=== PATIENT | female | born 1995 | race Two or more races ===

== ENCOUNTER 2022-03-08 08:58 | Emergency (ER) | payer OTHER ==
[~2022-03-08] VITALS: Ht 152.4 cm; Wt 46.3 kg
== END 2022-03-08 13:55 | disposition home or self-care (01) ==
LOC: ER 08:58
DX: S06.9X2A Unspecified intracranial injury with loss of consciousness of 31 minutes to 59 minutes, initial encounter (principal); S14.109A Unspecified injury at unspecified level of cervical spinal cord, initial encounter; R55 Syncope and collapse; W19.XXXA Unspecified fall, initial encounter; Y93.9 Activity, unspecified; Y92.511 Restaurant or cafe as the place of occurrence of the external cause; Y99.9 Unspecified external cause status
CPT/HCPCS: 70544; 72141

== ENCOUNTER 2022-03-11 17:53 | Emergency (ER) | payer OTHER ==
[~2022-03-11] VITALS: Ht 152.4 cm; Wt 45.4 kg
[2022-03-11] MEDS ORDERED: ONDANSETRON ODT8 MG PO (19:44)
== END 2022-03-11 20:22 | disposition home or self-care (01) ==
LOC: ER 17:53
DX: O02.0 Blighted ovum and nonhydatidiform mole (principal)

== ENCOUNTER 2022-06-08 01:49 | Outpatient (CLI) | payer OTHER ==
[~2022-06-08 01:49] MED LIST: ONDANSETRON ODT8 MG PO
[2022-06-08] MEDS ORDERED: PRENATABS RX T1 EACH PO (02:17)
[2022-06-08] MEDS ORDERED: FOLIC ACID0.8 M1 PO (02:18)
== END 2022-06-08 09:53 | disposition home or self-care (01) ==
LOC: OBS/DEL 01:49
PROVIDERS: ATTEND Obstetrics & Gynecology
DX: O26.892 Other specified pregnancy related conditions, second trimester (principal); Z3A.20 20 weeks gestation of pregnancy; R10.2 Pelvic and perineal pain

== ENCOUNTER 2022-06-08 10:18 | Outpatient (CLI) | payer OTHER ==
[~2022-06-08 10:18] MED LIST changes: +FOLIC ACID0.8 M1 PO; +PRENATABS RX T1 EACH PO
== END 2022-06-08 12:57 | disposition home or self-care (01) ==
LOC: PRENATAL 10:18
PROVIDERS: ATTEND Obstetrics & Gynecology Maternal & Fetal Medicine
DX: O35.9XX0 Maternal care for (suspected) fetal abnormality and damage, unspecified, not applicable or unspecified (principal); O35.3XX0 Maternal care for (suspected) damage to fetus from viral disease in mother, not applicable or unspecified; Z3A.20 20 weeks gestation of pregnancy

== ENCOUNTER 2022-08-06 14:28 | Outpatient (CLI) | payer OTHER | END 2022-08-07 12:43 | disposition home or self-care (01) | LOC: OBS/DEL 14:28 | PROVIDERS: ATTEND Obstetrics & Gynecology | DX: O23.33 Infections of other parts of urinary tract in pregnancy, third trimester (principal); O99.013 Anemia complicating pregnancy, third trimester; N39.0 Urinary tract infection, site not specified; Z3A.28 28 weeks gestation of pregnancy; Z20.822 Contact with and (suspected) exposure to COVID-19; Z91.040 Latex allergy status ==

== ENCOUNTER 2022-10-14 13:15 | Inpatient (IN) | payer OTHER ==
[~2022-10-14] VITALS: Ht 152.4 cm; Wt 61.7 kg
== END 2022-10-29 15:49 | disposition home or self-care (01) | DRG 807 ==
LOC: OB/GYN 10-24 13:15 → LDR 10-27 06:14 → OB/GYN 10-27 06:14 → O/R 10-27 14:35 → OB/GYN 10-27 14:37
PROVIDERS: ADMIT Obstetrics & Gynecology; ATTEND Obstetrics & Gynecology
PROC: 10E0XZZ Delivery of Products of Conception, External Approach (ICD-10-PCS; principal; 2022-10-27)
PROC: 4A1HXCZ Monitoring of Products of Conception, Cardiac Rate, External Approach (ICD-10-PCS; 2022-10-27)
DX: O80 Encounter for full-term uncomplicated delivery (principal); Z37.0 Single live birth; Z3A.40 40 weeks gestation of pregnancy; Z20.822 Contact with and (suspected) exposure to COVID-19

== ENCOUNTER 2024-03-10 12:06 | Emergency (ER) | payer OTHER ==
[~2024-03-10] VITALS: Ht 152.4 cm; Wt 52.6 kg
[2024-03-10 13:31] LABS: HEMATOCRIT 35.4 % (36.0-45.00); HEMOGLOBIN 12.1 g/dL (12.0-15.00); MEAN CORPUSCULAR HEMOGLOBIN 30.7 pg (27.00-32.0); MEAN CORPUSCULAR HGB CONC 34.1 g/dl (32.0-36.0); PLATELET COUNT 280 K/uL (150-450); RED BLOOD COUNT 3.93 M/uL (4.00-6.00); RED CELL DISTRIBUTION WIDTH 12.5 % (11.5-14.5)
[2024-03-10 13:40] LABS: URINE APPEARANCE Clear; URINE BACTERIA 1395.9 uL (0.0-1933); URINE BILIRRUBIN Negative (NEGATIVE); URINE BLOOD Negative; URINE COLOR Dark Yellow; URINE EPITHELIAL CELLS 39.2 uL (0.0-38.8); URINE GLUCOSE Negative (NEGATIVE); URINE KETONE Trace (NEGATIVE); URINE LEUKOCYTE Small; URINE NITRATE Negative; URINE PROTEIN Negative (NEGATIVE)
[2024-03-10 13:48] LABS: URINE CAST 0.15 uL (0.0-1.40)
[2024-03-10 13:54] LABS: CALCIUM 8.6 mg/dL (8.5-10.1); CREATININE SERUM 0.6 mg/dL (0.55-1.02); GFR 120.84; POTASSIUM 4.1 mEq/L (3.5-5.1)
== END 2024-03-10 14:28 | disposition home or self-care (01) ==
LOC: ER 12:08
PROVIDERS: General Practice
DX: O23.40 Unspecified infection of urinary tract in pregnancy, unspecified trimester (principal); N39.0 Urinary tract infection, site not specified; Z91.040 Latex allergy status

== ENCOUNTER 2024-07-28 09:47 | Emergency (ER) | payer OTHER ==
[~2024-07-28] VITALS: Ht 157.5 cm; Wt 54.4 kg
[2024-07-28] MEDS ORDERED: ACETAMINOPHEN 500 MG GEL..CAP PO ONE ×2 (10:30→10:32)
[2024-07-28 11:12] LABS: URINE BACTERIA 275.3 uL (0.0-1933); URINE RBC 2.9 uL (0.0-20.8); URINE WBC 18.6 uL (0.0-23.2)
[2024-07-28 11:29] LABS: PH,URINE 5.5 (5.0-8.0); URINE APPEARANCE Clear; URINE BILIRRUBIN Negative (NEGATIVE); URINE BLOOD Negative; URINE COLOR Yellow; URINE GLUCOSE Negative (NEGATIVE); URINE KETONE 15 (NEGATIVE); URINE LEUKOCYTE Small; URINE NITRATE Negative; URINE PROTEIN Negative (NEGATIVE)
[2024-07-28 11:31] LABS: URINE CAST 0.44 uL (0.0-1.40)
== END 2024-07-28 18:13 | disposition home or self-care (01) ==
LOC: ER 09:48
PROVIDERS: General Practice
DX: O26.899 Other specified pregnancy related conditions, unspecified trimester (principal); R10.2 Pelvic and perineal pain; O43.891 Other placental disorders, first trimester; Z3A.01 Less than 8 weeks gestation of pregnancy; Z91.040 Latex allergy status

== ENCOUNTER 2025-01-15 18:29 | Inpatient (IN) | payer OTHER ==
[~2025-01-15] VITALS: Ht 152.4 cm; Wt 46.7 kg
[2025-01-15 19:16] VITALS: BP 101/63
[2025-01-15] MEDS ORDERED: 0.9 % SODIUM CHLORIDE 1,000 ML IV PUSH SCH (20:00)
[2025-01-15] MEDS ORDERED: ONDANSETRON HCL 2 MG/ML VIAL IV SCH (21:00)
[2025-01-15] MEDS ORDERED: METRONIDAZOLE/SODIUM CHLORIDE 500 MG/100 ML PIGGYBACK IV SCH (21:00)
[2025-01-15 22:06] VITALS: BP 101/63
[2025-01-15 22:09] LABS: BASO % 0.3 % (0.1-1.2); EOS # 0.18 (0.04-0.54); EOS % 2.3 % (0.7-7.0); LYMPH # 2.29 (1.18-3.74); LYMPH % 29.3 % (19.3-53.1); MEAN PLATELET VOLUME 9.40 fl (9.4-12.4); MONO # 0.51 (0.24-0.82); MONO % 6.5 % (4.7-12.5); NEUT # 4.79 (1.56-6.13); NEUT % 61.3 % (34.0-71.1); RED CELL DISTRIBUTION WIDTH 12.4 % (11.6-14.4)
[2025-01-15 22:37] LABS: ALT/SGPT 15.0 U/L (12-78); AST/SGOT 11.0 U/L (15-37); BILIRUBIN TOTAL 0.3 mg/dL (0.3-1.2); BUN CREA RATIO 15.0 (7.0-25.0); CREATININE SERUM 0.41 mg/dL (0.55-1.02); GFR 186.09; GLOBULINA 4.0 G/DL (2.4-3.5); GLUCOSE FASTING 115.0 mg/dL (65-100); OSMOLALITY SERUM 274.0 MOSM/KG (275-295)
[2025-01-16 00:40] VITALS: BP 93/60
[2025-01-16 05:53] LABS: URINE APPEARANCE Cloudy; URINE BILIRRUBIN Negative (NEGATIVE); URINE BLOOD Negative; URINE COLOR Yellow; URINE GLUCOSE Negative (NEGATIVE); URINE KETONE Negative (NEGATIVE); URINE LEUKOCYTE Moderate; URINE NITRATE Negative; URINE PROTEIN Negative (NEGATIVE); URINE UROBILINOGEN 1.0 E.U./dl
[2025-01-16 05:57] LABS: URINE BACTERIA 1181.9 uL (0.0-1933); URINE EPITHELIAL CELLS 41.8 uL (0.0-38.8); URINE RBC 13.6 uL (0.0-20.8); URINE WBC 249.5 uL (0.0-23.2)
[2025-01-16 07:54] LABS: URINE CAST 0.43 uL (0.0-1.40)
[2025-01-16 07:55] LABS: URINE YEAST FEW /hpf
[2025-01-16 08:00] VITALS: BP 96/65
[2025-01-16] MEDS ORDERED: FAMOTIDINE/PF 20 MG/2 ML VIAL IV SCH (09:00)
[2025-01-16 16:35] VITALS: BP 103/68
[2025-01-17 00:01] VITALS: BP 90/60
[2025-01-17 08:00] VITALS: BP 115/75
[2025-01-17] MEDS ORDERED: ACETAMINOPHEN 500 MG GEL..CAP PO PRN (12:30)
[2025-01-17 19:20] VITALS: BP 98/60
[2025-01-18] VITALS: BP 94/58
[2025-01-18] MEDS ORDERED: LACTOBACILLUS ACIDOPHILUS 1 CAP CAP PO SCH (09:00)
[2025-01-18 09:04] VITALS: BP 105/64
[2025-01-18 19:42] VITALS: BP 105/69
[2025-01-18] MEDS ORDERED: TERCONAZOLE 20 GM TUBE VAG SCH (21:00)
== END 2025-01-19 15:35 | disposition home or self-care (01) | DRG 832 ==
LOC: OB/GYN 18:29
PROVIDERS: ADMIT Obstetrics & Gynecology; ATTEND Obstetrics & Gynecology
PROC: 4A1HXCZ Monitoring of Products of Conception, Cardiac Rate, External Approach (ICD-10-PCS; principal; 2025-01-15)
DX: O21.0 Mild hyperemesis gravidarum (principal); O98.311 Other infections with a predominantly sexual mode of transmission complicating pregnancy, first trimester; A59.8 Trichomoniasis of other sites; Z3A.10 10 weeks gestation of pregnancy

== ENCOUNTER → 2025-01-30 08:34 | Outpatient (CLI) | payer OTHER | END | disposition home or self-care (01) | LOC: PRENATAL 08:34 | PROVIDERS: ATTEND Obstetrics & Gynecology Maternal & Fetal Medicine | DX: Z76.1 Encounter for health supervision and care of foundling (principal) ==

== ENCOUNTER 2025-03-26 12:20 | Outpatient (CLI) | payer OTHER | END 2025-03-26 12:21 | disposition home or self-care (01) | LOC: PRENATAL 12:20 | PROVIDERS: ATTEND Obstetrics & Gynecology Maternal & Fetal Medicine | DX: O44.02 Complete placenta previa NOS or without hemorrhage, second trimester (principal); Z14.8 Genetic carrier of other disease; Z3A.19 19 weeks gestation of pregnancy ==